=== PATIENT | female | born 1980 | race Caucasian/White ===

== ENCOUNTER 2018-09-04 15:40 | Emergency (ER) | payer SELFPAY ==
[~2018-09-04] VITALS: Ht 172.7 cm; Wt 78.0 kg
[2018-09-04 15:45] VITALS: BP 126/76
== END 2018-09-04 22:10 | disposition home or self-care (01) ==
LOC: ER 15:40
DX: M27.2 Inflammatory conditions of jaws (principal); K08.89 Other specified disorders of teeth and supporting structures; Z98.84 Bariatric surgery status; Z88.0 Allergy status to penicillin
CPT/HCPCS: 99283